=== PATIENT | female | born 1965 | race Caucasian/White ===

== ENCOUNTER 2025-08-09 09:23 | Day surgery (SDC) | payer BC, SELFPAY ==
--- NOTE | 2025-08-05 16:51 | P.HP_ITS ---
History of Present Illness *Admission Date: 08/09/25 *History of present illness: Mrs. Erickson is a 60-year-old female who is here for diagnostic EGD and screening/surveillance colonoscopy. The patient does have dyspepsia with history of right upper quadrant abdominal pain and nausea. She has a normal ultrasound. Her EGD with ne in June 2018 revealed nonerosive GERD with mild esophageal dysmotility and mild prepyloric reactive gastropathy. The patient also has history of adenomatous colon polyps. She had a colonoscopy in 2007. Her last colonoscopy with ne in May 2021 revealed 3 polyps (3, 8 and 9 mm?tubular adenomas x 2 and tubulovillous adenoma x 1) which were removed. The patient does have a long history of IBS with constipation. She reports no rectal bleeding, weight loss or family history of colon cancer. The examination is deemed medically necessary for diagnostic EGD and screening/surveillance colonoscopy. The patient has been seen, interviewed and examined prior to the procedure by both myself and the anesthesia provider. [facility] Disclaimer: The information contained in this section may have been updated after the patient was seen, as this information can be updated by other users. Medical History Dyspepsia Irritable bowel syndrome (IBS) Surgical History History of myringotomy H/O wisdom tooth extraction Hx of tubal ligation H/O nasal septoplasty Family History Other No significant family history Social History Smoking Status: Never smoker alcohol intake: never substance use type: denies use current occupational status: employed Travel in the last 8 weeks?: None Review of Systems Review of Systems Review of systems (narrative): Negative *Cardiovascular Comments: Negative *Gastrointestinal Comments: Negative *Genitourinary Comments: Negative *Musculoskeletal Comments: Negative *Neurologic Comments: Negative Meds Home Medications and Allergies Home Medications ?Medication ?Instructions ?Recorded ?Confirmed ?Type sodium,potassium,mag sulfates 17.5 See Rx Instructions PO .COMPLEX 07/26/25 Rx gram-3.13 gram-1.6 gram oral soln #354 mL (Suprep Bowel Prep Kit) azelastine 137 mcg (0.1 %) nasal 1 spray intranasal BI D 08/06/25 08/09/25 History spray New Prescriptions to Start Prescriptions: Allergies Allergy/AdvReac Type Severity Reaction Status Date / Time hydrocodone AdvReac Nausea Verified 08/09/25 09:50 Exam *Routine HEENT Exam Head: Present normocephalic Eye: Present EOMI and PERRL ENT: Present mucous membranes moist *Routine Neck Exam Neck: Present supple *Routine Respiratory Exam Respiratory: Present CTA bilaterally *Routine Cardiovascular Exam Cardiovascular: Present RRR *Routine Abdominal Exam Abdominal: Present soft and normoactive bowel sounds; Absent tenderness *Routine Rectal Exam Rectal:: deferred *Routine Genitalia Exam Genitalia:: deferred *Routine Extremities Exam Extremities: Absent cyanosis, clubbing or edema *Routine Skin Exam Skin: Present warm; Absent rash *Routine Neurological Exam Neurological: Present alert and oriented X3 Assessment and Plan *Assessment and plan (1) Dyspepsia: Status: Acute Category: Medical Code(s): R10.13 - Epigastric pain (2) Upper abdominal pain: Status: Acute Category: Medical Code(s): R10.10 - Upper abdominal pain, unspecified (3) Personal history of adenomatous and serrated colon polyps: Status: Acute Category: Medical Code(s): Z86.0101 - Personal history of adenomatous and serrated colon polyps (4) Tubulovillous adenoma polyp of colon: Status: Acute Category: Medical Code(s): D12.6 - Benign neoplasm of colon, unspecified Plan A/P: 1. Upper abdominal pain/dyspepsia for upper endoscopy and personal history of adenomatous colon polyps (with prior colonoscopy showing a tubulovillous adenoma of the descending colon) for colonoscopy is the preprocedural diagnosis. The patient will be anesthetized/sedated using MAC sedation. The patient has been seen and examined. Cardiac and lung assessment prior to the examination is stable. Proceed with planned diagnostic EGD and screening colonoscopy.
--- NOTE | 2025-08-09 06:56 | HMH.PROCNOTE ---
[facility] Procedure Note Date: 08/09/25 Time: 11:02 Procedure Note:: Upper Endoscopy Procedure Report: Esophagogastroduodenoscopy with cold biopsies and TTS balloon dilation Endoscopost: Aleks Shannon II, MD Referring Physician: RAYMON Dc, [address] [place], [place] [id number], [place] [address] Date of Procedure: August 09, 2025 Equipment: Olympus [id number]-1100 standard upper endoscope Sedation: MAC sedation Indications: Mrs. Erickson is a 60-year-old female who is here for diagnostic EGD and screening/surveillance colonoscopy. The patient does have dyspepsia with history of midepigastric abdominal pain/left upper quadrant abdominal pain and nausea. She also has some intermittent dysphagia/globus sensation. She has a normal ultrasound. Her EGD with nm in June 2018 revealed nonerosive GERD with mild esophageal dysmotility and mild prepyloric reactive gastropathy. The patient did have biopsies that showed intestinal metaplasia or short segment Thompson's esophagus. The patient also has history of adenomatous colon polyps. She had a colonoscopy in 2007. Her last colonoscopy with nm in May 2021 revealed 3 polyps (3, 8 and 9 mm?tubular adenomas x 2 and tubulovillous adenoma x 1) which were removed. The patient does have a long history of IBS with constipation. The patient had done very well with the fiber bowel regimen (combined MiraLAX plus Metamucil mixed together every morning). She did elect to stop this last year and has had more significant troubles with constipation. She will go up to a week without a bowel movement and then developed diarrhea. She has had some vagal symptoms with her bowel movements including diaphoresis, lightheadedness and nausea. She reports no rectal bleeding, weight loss or family history of colon cancer. The patient reports no gassiness, bloating or belching. She reports no early satiety. The examination is deemed medically necessary for diagnostic EGD and screening/surveillance colonoscopy. Procedure: Prior to the procedure, a history and physical exam was performed, and patient's medications and allergies were reviewed. The risks, benefits and alternatives of the sedation and procedure were discussed with the patient. All questions were answered and informed consent was obtained. The patient was brought to the procedure room. Patient identification and proposed procedure were verified by the physician and the nurse. The patient was placed in a left lateral decubitus position and the scope was passed under direct vision. Throughout the procedure, the patient's blood pressure, pulse, and oxygen saturations were monitored continuously. The upper GI endoscopy was accomplished without difficulty. The patient tolerated the procedure well. Findings: The scope was passed directly into the upper esophagus and advanced to the third portion of the duodenum. The post bulbar duodenum, ampulla and duodenal bulb were normal with normal mucosa and conniventes. 2 cold biopsies were taken from the second portion of the duodenum for the disaccharidase assay. The scope was withdrawn through a normal duodenal bulb and pylorus into the stomach. There was very minimal linear antral gastropathy. The body and fundus of the stomach were grossly normal. Cold biopsies were taken from the antrum. Upon retroflexion there was a very small sliding 1 to 2 cm hiatal hernia. The scope was then withdrawn into the esophagus. There was no evidence of reflux esophagitis or Thompson's. Biopsies were taken at the GE junction because of prior questionable intestinal metaplasia/Thompson's. There was no evidence of any Schatzki's ring, stricture, corrugation, furrowing or inlet patch. There were tertiary contractions and evidence of mild esophageal dysmotility. The entire esophagus was dilated to 60 Polish/20 mm with a TTS hydrostatic balloon. There was mild resistance at the cricopharyngeus. The remainder of the esophageal mucosa was normal. Impression: 1. Cricopharyngeal spasm status post dilation to 20 mm 2. Nonerosive GERD with mild esophageal dysmotility and very small sliding 1 to 2 cm hiatal hernia 2. Very mild linear antral gastropathy Plan: I will follow-up the biopsies and disaccharidase assay. I will discuss the findings with the patient and family and proceed with diagnostic colonoscopy. We will discuss treatment options.
--- NOTE | 2025-08-09 06:56 | HMH.PROCNOTE ---
[facility] Procedure Note Date: 08/09/25 Time: 11:17 Procedure Note:: Colonoscopy Procedure Report: Colonoscopy Endoscopist: Aleks Shannon II, MD Referring physician: RAYMON Dc, [address] [place], [place] [id number], [place] [address] Date of Procedure: August 09, 2025 Equipment: Olympus [id number] adult colonoscope Sedation: MAC sedation Indication: Mrs. Erickson is a 60-year-old female who is here for diagnostic EGD and screening/surveillance colonoscopy. The patient does have dyspepsia with history of midepigastric abdominal pain/left upper quadrant abdominal pain and nausea. She also has some intermittent dysphagia/globus sensation. She has a normal ultrasound. Her EGD with mt in June 2018 revealed nonerosive GERD with mild esophageal dysmotility and mild prepyloric reactive gastropathy. The patient did have biopsies that showed intestinal metaplasia or short segment Thompson's esophagus. The patient also has history of adenomatous colon polyps. She had a colonoscopy in 2007. Her last colonoscopy with mt in May 2021 revealed 3 polyps (3, 8 and 9 mm?tubular adenomas x 2 and tubulovillous adenoma x 1) which were removed. The patient does have a long history of IBS with constipation. The patient had done very well with the fiber bowel regimen (combined MiraLAX plus Metamucil mixed together every morning). She did elect to stop this last year and has had more significant troubles with constipation. She will go up to a week without a bowel movement and then developed diarrhea. She has had some vagal symptoms with her bowel movements including diaphoresis, lightheadedness and nausea. She reports no rectal bleeding, weight loss or family history of colon cancer. The patient reports no gassiness, bloating or belching. She reports no early satiety. The examination is deemed medically necessary for diagnostic EGD and screening/surveillance colonoscopy. Procedure: Prior to the procedure, a history and physical exam was performed, and patient's medications and allergies were reviewed. The risks, benefits and alternatives of the sedation and procedure were discussed with the patient. All questions were answered and informed consent was obtained. The patient was brought to the procedure room. Patient identification and proposed procedure were verified by the physician and the nurse. The patient was placed in a left lateral decubitus position and the scope was passed under direct vision. Throughout the procedure, the patient's blood pressure, pulse, and oxygen saturations were monitored continuously. The colonoscopy was accomplished without difficulty. The patient tolerated the procedure well. Findings: On digital rectal examination there was normal rectal tone. There were no external hemorrhoids. The colonoscope was introduced through the anal canal to the rectum and advanced to the cecum. The ileocecal valve and appendiceal orifice were identified. The scope was advanced a short distance into the ileum which appeared grossly normal. The scope was then withdrawn into the colon. The cecum, ascending and transverse colon and mucosa were grossly normal. There were scattered diverticuli throughout the descending and sigmoid colon (LEFT colon). The rectum itself was normal. Upon retroflexion within the rectum there were no significant internal hemorrhoids. The preparation was excellent throughout with [place] Preparation Score of 9. The cecal time was 12 minutes. Impression: 1. Mild left-sided diverticulosis Plan: The patient will not require screening/surveillance colonoscopy again for 10 years. I would resume the fiber bowel regimen (combined MiraLAX plus Metamucil) or prescription therapy for her IBS?C (Linzess, Trulance or prucalopride).
[2025-08-09 09:52] VITALS: BP 124/44; PULSE 92; RESP 18; TEMP 36.3; O2SAT 97; BMI 20.5
[2025-08-09] MEDS: LACTATED RINGERS 1000ML 1,000 ML 50 ML IV (10:01)
--- NOTE | 2025-08-09 10:39 | EXP.ANES.CKL ---
[facility] Disclaimer: The information contained in this section may have been updated after the patient was seen, as this information can be updated by other users. Medical History Dyspepsia Irritable bowel syndrome (IBS) Surgical History History of myringotomy H/O wisdom tooth extraction Hx of tubal ligation H/O nasal septoplasty Family History Other No significant family history Social History Smoking Status: Never smoker alcohol intake: never substance use type: denies use current occupational status: employed Travel in the last 8 weeks?: None [facility] Anesthesia Checklist Patient Identification Patient Identification: Arm Band and Verbal (Name & ) Structural Data Admitted From: Home Planned Operative Procedure/s: EGD+Colonoscopy Consent for Planned Operative Procedure(s) Verified: Yes Verified Documents: Surgical Consent NPO Status Verified Time NPO: 00:00 Chart Verification Results Verified: None Additional verifications Anesthesia Reactions: No Airway Assessment Mallampati Score:: Class II C-Spine Mobility Assessed: Yes TMJ Mobility Assessed: Yes Dentition: Good Dentition Neurological Assessment Level of Consciousness: Awake, Alert and Appropriate Hx Seizures: No Numbness or tingling in extremities: No Anesthesia Plan Anesthesia Risk discussed: Yes Anesthesia Plan: Verified ASA Class: II Anesthesia Type: MAC
[2025-08-09 11:20] VITALS: BP 73/50; PULSE 78; RESP 16; TEMP 36.1; O2SAT 99
[2025-08-09 11:30] VITALS: BP 80/42; PULSE 72; RESP 16; O2SAT 98
[2025-08-09 11:40] VITALS: BP 95/55; PULSE 73; RESP 18; O2SAT 99
[2025-08-09 11:50] VITALS: BP 98/51; PULSE 76; RESP 18; O2SAT 99
[2025-08-13 14:12] LABS: Interpretation Notes (.); Lactase 23.73 (>/= 14.0); Maltase 129 (>/= 110.0); Palatinase 10.95 (>/= 8.5); Reference Notes (.); Sucrase 25.55 (>/= 25.0)
== END 2025-08-09 11:50 | disposition home or self-care (01) ==
PROVIDERS: PCP Nurse Practitioner Family; Visit Provider Internal Medicine Gastroenterology
PROC: 0DJ08ZZ Inspection of Upper Intestinal Tract, Via Natural or Artificial Opening Endoscopic (ICD-10-PCS; CPT 45378; principal; 2025-08-09 11:00)
DX: Z12.11 Encounter for screening for malignant neoplasm of colon (principal); K31.89 Other diseases of stomach and duodenum; K44.9 Diaphragmatic hernia without obstruction or gangrene; K22.4 Dyskinesia of esophagus; K21.9 Gastro-esophageal reflux disease without esophagitis; K57.30 Diverticulosis of large intestine without perforation or abscess without bleeding; K58.1 Irritable bowel syndrome with constipation; Z88.5 Allergy status to narcotic agent; Z86.0101 Personal history of adenomatous and serrated colon polyps
CPT/HCPCS: 43239; 43249; 45378; 82657; C1726; J2003; J2704; J7120